=== PATIENT | male | born 1945 | race Caucasian/White ===

== ENCOUNTER 2022-09-05 19:15 | Emergency (ER) | payer OTHER ==
[~2022-09-05] VITALS: Ht 177.8 cm; Wt 100.0 kg
[2022-09-05] MEDS ORDERED: SODIUM CHLORIDE 0.9% 1,000 ML IV ONE (20:00)
[2022-09-05 20:28] LABS: BASOPHILS % 3.1 % (0.0-2.0); EOSINOPHILS % 1.3 % (0.0-5.0); HEMATOCRIT. 43.8 % (42.0-52.0); HEMOGLOBIN. 14.6 g/dL (14.0-18.0); LYMPHOCYTES % 27.1 % (20.0-50.0); MEAN CORPUSCULAR HEMOGLOBIN 30.7 pg (28.0-32.0); MEAN CORPUSCULAR VOLUME 91.8 fL (80.0-94.0); MEAN PLATELET VOLUME 9.7 fl (7.4-10.4); MONOCYTES % 7.2 % (2.0-8.0); NEUTROPHILS % 61.3 % (40.0-76.0); PLATELET 244 x1000/uL (130-400); RED BLOOD CELL COUNT 4.77 mill/uL (4.7-6.1); RED CELL DISTRIBUTION WIDTH 14.2 % (11.6-14.6)
[2022-09-05 20:34] LABS: INR 1.1; PARTIAL THROMBOPLASTIN TIME 24.7 sec (23.4-31.0); PROTHROMBIN TIME 11.4 sec (9.6-11.0)
[2022-09-05 20:35] LABS: CHLORIDE 107 mEq/L (98-107)
[2022-09-05 20:44] LABS: BETA HYDROXYBUTYRATE 0.2 mMol/L (0.0-0.3)
[2022-09-05] MEDS ORDERED: ASPIRIN 325MG EC TABLET PO ONE (22:00)
[2022-09-05 23:10] VITALS: BP 141/71
== END 2022-09-05 23:21 | disposition short-term general hospital (02) ==
LOC: ER 19:15
DX: E11.65 Type 2 diabetes mellitus with hyperglycemia (principal); R55 Syncope and collapse; R41.82 Altered mental status, unspecified; Z20.822 Contact with and (suspected) exposure to COVID-19
CPT/HCPCS: 36415; 70450; 71045; 80053; 82010; 82962; 83880; 84484; 85025; 85610; 85730; 87426; 93005; 99285; C9803; J7030; 96360